=== PATIENT | male | born 1995 | race African-American/Black ===

== ENCOUNTER 2024-06-28 16:28 | Outpatient (CLI) | payer MEDICAID, SELFPAY | END 2024-06-28 16:29 | disposition home or self-care (01) | LOC: AMB 07-14 07:39 | PROVIDERS: Visit Provider Student in an Organized Health Care Education/Training Program | DX: R56.9 Unspecified convulsions (principal) | CPT/HCPCS: A0425; A0427 ==

== ENCOUNTER 2024-06-28 16:52 | Emergency (ER) | payer MEDICAID, SELFPAY ==
[2024-06-28] VITALS (60 sets, daily range): BP systolic 119–154; BP diastolic 68–101; PULSE 47–106; RESP 14–30; TEMP 36.6; O2SAT 93–100; BMI 18.5
[2024-06-28] MEDS: OLANZapine 5 MG/ML inj 10 MG IM (16:53)
[2024-06-28] MEDS: LORazepam 2 MG/ML inj IM (16:55)
[2024-06-28] MEDS: KETAMINE HCL 100 MG/ML inj 180 MG IM ×2 (17:03→20:45)
[2024-06-28 17:45] LABS: Basophils Percent Auto 0.3 % (0.0-3.0); Eosinophils Percent Auto 1.3 % (0.0-7.0); Hematocrit* 45.8 % (37.0-53.0); Hemoglobin* 14.9 gm/dL (13.5-17.5); Immature Granulocytes Pct Auto 0.4 %; Lymphocytes Percent Auto 37.5 % (20-44); Mean Corpuscular HGB Conc 33 gm/dL (32-36); Mean Corpuscular Hemoglobin 31 pg (26-34); Mean Corpuscular Volume 94 fL (80-100); Monocytes Percent Auto 7.2 % (0.0-11.0); Neutrophils Percent Auto 53.3 % (42.0-72.0); Platelet Count* 240 K/uL (140-440); RDW Coefficient of Variation % 12.6 % (11.5-15.5); Red Blood Count* 4.86 m/uL (4.30-5.90); White Blood Count* 13.56 K/uL (4.50-11.00)
[2024-06-28 17:48] LABS: Troponin, Point-of-Care* 0.02 ng/ml (0.01-0.04)
--- NOTE | 2024-06-28 18:02 | CRLHL7_ITS ---
For Patients: As a result of the Century Cures Act, medical imaging exams and procedure reports are released immediately into your electronic medical record. You may view this report before your referring provider. If you have questions, please contact your health care provider. INDICATION: Altered mental status, seizures. TECHNIQUE: CT head without contrast. COMPARISON: None. FINDINGS: CSF spaces: Within normal limits for age. Brain parenchyma: Hemorrhagic contusion in the left temporal pole measuring approximately 1 cm. Small volume subarachnoid hemorrhage in the left temporal region. Mild thickening of the tentorial leaflets measuring approximately 3 mm, representing subdural hemorrhages. Additional small subdural hemorrhage along the posterior falx. Trace pneumocephalus along the right temporal calvarium. Associated nondisplaced fracture of the right parietal and temporal bones with fracture plane extending to the right zygomatic process. Langston-white matter differentiation is maintained. No midline shift. Skull base and calvarium: Paranasal sinuses are clear. Small right mastoid effusion. The visualized orbits are grossly unremarkable. Right parietal and temporal bone fracture as above. IMPRESSION: 1. Left temporal pole hemorrhagic contusion, left temporal region subarachnoid hemorrhage, and bilateral tentorial and posterior falx subdural hemorrhages. 2. Right parietal and temporal bone fractures as above 3. Small right mastoid effusion. No definite fractures identified, however evaluation is limited by thickness of the provided images. Consider further evaluation with CT temporal bone. 4. Findings were discussed with Dr. Camarena by Dr. Jimenez on 06/28/2024 at 9:09 p.m. Please note that all CT scans at this facility use dose modulation, iterative reconstruction, and/or weight-based dosing when appropriate to reduce radiation dose to as low as reasonably achievable. Dictated by Jose Luis Jimenez MD @ 06/28/2024 9:21:04 PM (Electronically Signed)
[2024-06-28 18:06] LABS: Slide Review Reflex No
[2024-06-28 18:29] LABS: Acetaminophen* < 10.0 ug/mL (10.0-30.0); Salicylate* < 1.0 mg/dL (1.0-10)
[2024-06-28 18:30] LABS: Ethanol* < 0.01 % (0.01-0.03)
--- NOTE | 2024-06-28 18:45 | ED.NURSE ---
MD is aware HR down to low as 39. Addition 12 lead complete. Pt is assymtomatic and appears to be sleeping. HR has been around 50-60 when resting and up to 110s when awake and non re directable.
--- OUTSIDE RECORDS SUMMARY | 2024-06-28 18:45 | XMS_ITS ---
Author Organization [facility] Address [address] [place] [address] Care Team Providers Care Occupational Health Rn Name Role Phone Unavailable Unavailable Unavailable Surgery Details Not on file Complications Check Surgery Details section. Procedure Estimated Blood Loss Check Surgery Details section. Procedure Findings Check Surgery Details section. Procedure Specimens Taken Check Surgery Details section.
--- OUTSIDE RECORDS SUMMARY | 2024-06-28 18:45 | XMS_ITS | Clinical Summary ---
Author Organization [facility] Address [address] [place] [address] Care Team Providers Care Sheet Metal Worker Name Role Phone None Reported, Pcp Primary Care Provider Unavail able Source Comments Patient records contain information from all sites at [facility]. For routine questions regarding patient records, call [phone] during business hours, M-F 8:00 AM - 5:00 PM Central Time. Record requests for emergency care only can be directed to [phone] at any time.[facility] Allergies No known active allergies Medications acetaminophen 325 mg capsule Take 2 tablets by mouth as needed. 4 Active ammonium lactate (AMLACTIN) 12 % lotion Apply 1 application topically 2 (two) times a day. 6 Active naproxen (NAPROSYN) 500 mg tablet Take 500 mg by mouth. 8 Active Active Problems Problem Noted Date Diagnosed Date Attention Deficit With Hyperactivity Disorder Immunizations Name Administration Dates Next Due 4vHPV (discontinued) 09/06/2015,01/29/2013 DTP / Hib 01/26/1997,1996,1996 DTaP (Infanrix, [employer]) 01/11/2008,09/09/2001 H1N1 Nasal 06/22/2009 HepA Pediatric/Adolescent 07/25/2008,01/11/2008 HepB Pediatric/Adolescent 06/14/1997,1996, 1996 IPV 09/09/2001 Influenza Split 07/29/2006,05/18/2003 MCV4 (Menactra)(Discontinued) 01/29/2013,07/21/2 008 MCV4, Unspecified 01/11/2008 MMR 10/30/2001,09/09/2001 Polio, Unspecified 01/26/1997,1996, 997 Tdap 01/11/2008 BERTA 01/11/2008,07/26/1997 influenza trivalent LAIV (Na igor) (2 years through 49 years) 05/11/2012,05/16/2008,05/06/2007 influenza trivalent vaccine (6 months and older)(PF) 04/04/2009 Social History Tobacco Use Types Packs/Day Years Used Date Smoking Tobacco: Every Day Cigarettes Smokeless Tobacco: Never Tobacco Cessation:Ready to Q uit: Not Asked; Counseling Given: Not Answered Alcohol Use Standard Drinks/Week Comments Yes 0 (1 standard drink = 0.6 oz pur e alcohol) [facility] Utilities Answer Date Recorded In the past 12 months has th e electric, gas, oil, or water company threatened to shut off services in your home? Patient declined 07/14/2023 Social Connection and Isolation Panel [NHANES] A nswer Date Recorded Frequency of Communication with Friends and Fami ly Not on file 11/08/2019 Frequency of Social Gatherings with Friends and Family Not on file 11/08/2019 Attends Cheondoism Services Not on file 11/07 Do you belong to any clubs o r organizations such as buddhism groups, unions, fraternal or athletic groups, or school groups? Yes 11/08/2019 How often do you attend meet ings of the clubs or organizations you belong to? Patient declined 11/08/2019 Are you , , di vorced, , never , or living with a partner? Never 11/08/2019 AUDIT-C Answer Date Recorded Q1: How often do you have a drink containing alc ohol? 2-4 times a month 07/13/2019 Q2: How many drinks containi ng alcohol do you have on a typical day when you are drinking? 5 or 6 07/13/2019 Q3: How often do you have si x or more drinks on one occasion? Less than monthly 07/13/2019 Overall Financial Resource Strain (CARDIA) Answe r Date Recorded How hard is it for you to pa y for the very basics like food, housing, medical care, and heating? Somewhat hard 11/08/2019 PHQ-2 Answer Date Recorded PHQ-2 Score 0 07/13/2019 [facility] - Occupational Stress Questionnaire Answer Date Recorded Do you feel stress - tense, restless, nervous, or anxious, or unable to sleep at night because your mind is troubled all the time - these days? Rather much 11/08/2019 Exercise Vital Sign Answer Date Recorde d On average, how many days pe r week do you engage in moderate to strenuous exercise (like a brisk walk)? Patient declined On average, how many minutes do you engage in exercise at this level? Patient declined 07/14/2023 Hunger Vital Sign Answer Date Recorded Within the past 12 months, y ou worried that your food would run out before you got the money to buy more. Sometimes true Within the past 12 months, t he food you bought just didn't last and you didn't have money to get more. Patient declined PRAPARE - Transportation Answer Date Re corded In the past 12 months, has l ack of transportation kept you from medical appointments or from getting medications? No 06/24 In the past 12 months, has l ack of transportation kept you from meetings, work, or from getting things needed for daily living? No 07/14/2023 Nutrition Answer Date Recorded Nutrition: EVOO Fat Source Unknown 07/14 On average, how many serving s of fruits and vegetables do you eat per day (serving size is equal to 1 cup or approximately the size of a tennis ball)? 0-2 07/14/2023 Dental Answer Date Recorded Dental: Regular Dentist No 07/14/19 24 Employment Answer Date Recorded Employment status Unemployed/not in th e paid workforce but seeking employment 07/14/2023 Housing Stability Answer Date Recorded What is your living situatio n today? I do not have a steady place to live (I am temporarily staying with others, in a hotel, in a senior care, living outside on the street, on a beach, in a car, abandoned building, bus or train station, or in a park) 07/14/2023 Education Answer Date Recorded What is the highest level of school you have completed or the highest degree you have received? GED or equivalent Sex and Gender Information Value Date Recorded Sex Assigned at Male 07/14/2023 9:17 AM SOAPSTONER Legal Sex Male 4:48 PM SOAPSTONER Gender Identity Male 07/14/2023 9:17 AM SOAPSTONER Sexual Orientation Choose not to disclose 2023 9:17 AM SOAPSTONER Last Filed Vital Signs Vital Sign Reading Time Taken Comments Blood Pressure 131/70 11/09/2019 4:26 PM CDT Pulse 86 11/09/2019 4:26 PM CDT Temperature 36.9 C (98.4 F) 11/09/2019 4:26 PM CDT Respiratory Rate 12 07/13/2019 10:26 AM SOAPSTONER Oxygen Saturation 98% 11/09/2019 4:26 PM CDT Inhaled Oxygen Concentration - - Weight 68 kg (149 lb 14.6 oz) 07/13/2019 10:26 A M SOAPSTONER Height 177.8 cm (5' 10) 01/29/2013 1:23 PM CDT Body Mass Index - - Plan of Treatment Health Maintenance Due Date Last Done Comments HIV Screening 1996 Hepatitis C Screening 1996 Tobacco Cessation counseling 1996 Pneumococcal vaccine (0-49 y ears) (1 of 2 - PCV) 2015 HPV Vaccines (3 - Male 3-dos e series) 11/29/2015 09/06/2015, 01/29/2013 DTaP,Tdap,and Td Vaccines (7 - Td or Tdap) 01/10/2018 01/11/2008, 01/11/2008, 09/09/2001, Additional history exists COVID-19 Vaccine (1 - 2023-2 5 season) 2024 Influenza Vaccine (#1) 2024 2, 04/04/2009, 05/16/2008, Additional history exists Depression Screening (Annual PHQ-2) 06/23/2024 Hepatitis B Vaccines Completed 06/14/1997, 1996, 1996 IPV Vaccines Completed 09/09/2001, 11/1996, 1996, Additional history exists Insurance [facility] [id number] [place] [id number] Care Teams Sheet Metal Worker Relationship Specialty Start Date End Date None Reported, Pcp PCP - General Family Medicine 01/27/24
--- OUTSIDE RECORDS SUMMARY | 2024-06-28 18:45 | XMS_ITS | Clinical Summary ---
Author Organization [facility] Address [place], [place] [address] Care Team Providers Care Sr. Manager Corporate Communications Name Role Phone Judson Corrigan MD Primary Care Provider [phone] Allergies No known active allergies Medications naproxen (NAPROSYN) 500 mg tabletIndications:Art hralgia of right temporomandibular joint Take 1 tablet by mouth 2 times daily with meals. 20 tablet 8 Active Metaxalone (METAXALL) 800 mg tabletIndications:Art hralgia of right temporomandibular joint Take 1 tablet by mouth 3 times daily. 30 tablet 8 Active cyclobenzaprine (FLEXERIL) 10 mg tabletIndications:Art hralgia of right temporomandibular joint Take 1 tablet by mouth every 8 hours if needed for Muscle Spasm. 30 tablet 8 Active Social History Tobacco Use Types Packs/Day Years Used Date Smoking Tobacco: Never Assessed Sex and Gender Information Value Date Recorded Sex Assigned at Not on file Legal Sex Male 5:54 AM SISAL OPERATOR Gender Identity Not on file Sexual Orientation Not on file Last Filed Vital Signs Vital Sign Reading Time Taken Comments Blood Pressure 125/71 12/07/2020 7:42 AM CDT Pulse 89 12/07/2020 7:42 AM CDT Temperature 36.8 C (98.3 F) 12/07/2020 7:31 AM CDT Respiratory Rate 16 12/07/2020 7:31 AM CDT Oxygen Saturation 97% 12/07/2020 7:42 AM CDT Inhaled Oxygen Concentration - - Weight 62.6 kg (138 lb) 12/07/2020 7:30 AM CDT Height 180.3 cm (5' 11) 12/07/2020 7:30 AM CDT Body Mass Index 19.25 12/07/2020 7:30 AM CDT Plan of Treatment Health Maintenance Due Date Last Done Comments Tdap 2007 Depression screening for age 12+ 2008 HIV for age 15-65 2011 BMI (ht and wt on same day) for age 18+ 2014 Hepatitis C screening for ag e 18-79 2014 Tetanus booster 2016 COVID-19 vaccine series (2023- season) 2024 Influenza for age 9-49 02/22/2024 Pneumococcal series for age 6-49 Aged Out No longer eligible based on patient's age to complete this topic Care Teams Sr. Manager Corporate Communications Relationship Specialty Start Date End Date Judson Corrigan MD PCP - General Family Practice 11/11/17
--- OUTSIDE RECORDS SUMMARY | 2024-06-28 18:45 | XMS_ITS | Referral Summary ---
Author Organization [facility] Address [address] [place] [address] Care Team Providers Care Parachute Taper Name Role Phone None Reported, Pcp Primary Care Provider Unavail able Source Comments Patient records contain information from all sites at [facility]. For routine questions regarding patient records, call [phone] during business hours, M-F 8:00 AM - 5:00 PM Central Time. Record requests for emergency care only can be directed to [phone] at any time.[facility] Allergies No known active allergies Medications acetaminophen [...] drink = 0.6 oz pur e alcohol) [facility] Utilities Answer Date Recorded In the past [...] and Family Not on file 11/08/2019 Attends Christianity Services Not on file 11/07 Do you belong to any clubs o r organizations such as lutheran groups, unions, fraternal or athletic groups, or [...] Answer Date Recorded PHQ-2 Score 0 07/13/2019 [facility] - Occupational Stress Questionnaire Answer Date Recorded [...] with others, in a hotel, in a penitentiary, living outside on the street, on a beach, in a car, abandoned building, bus or train station, or in a park) 07/14/2023 Education Answer Date Recorded What is the highest level of school you have completed or the highest degree you have received? GED or equivalent Sex and Gender Information Value Date Recorded Sex Assigned at Male 07/14/2023 9:17 AM SKIVING MACHINE OPERATOR Legal Sex Male 4:48 PM SKIVING MACHINE OPERATOR Gender Identity Male 07/14/2023 9:17 AM SKIVING MACHINE OPERATOR Sexual Orientation Choose not to disclose 2023 9:17 AM SKIVING MACHINE OPERATOR Last Filed Vital Signs Vital Sign Reading Time Taken Comments Blood Pressure 131/70 11/09/2019 4:26 PM CDT Pulse 86 11/09/2019 4:26 PM CDT Temperature 36.9 C (98.4 F) 11/09/2019 4:26 PM CDT Respiratory Rate 12 07/13/2019 10:26 AM SKIVING MACHINE OPERATOR Oxygen Saturation 98% 11/09/2019 4:26 PM CDT Inhaled Oxygen Concentration - - Weight 68 kg (149 lb 14.6 oz) 07/13/2019 10:26 A M SKIVING MACHINE OPERATOR Height 177.8 cm (5' 10) 01/29/2013 1:23 PM CDT Body Mass Index - - Plan of Treatment Not on file Insurance [address] [place] [id number] [facility] [address] [place] [id number] Care Teams Parachute Taper Relationship Specialty Start Date End Date None Reported, Pcp PCP - General Family Medicine 01/27/24
[2024-06-28 19:01] LABS: Albumin* 4.7 g/dL (3.3-5.0); Chloride* 102 mmol/L (96-114); Sodium* 136 mmol/L (135-149)
[2024-06-28 19:03] LABS: Anion Gap 12 mEq/L (7-15); Bilirubin Total* 0.6 mg/dL (0.1-1.5); Carbon Dioxide* 22 mmol/L (20-32); Creatinine* 0.9 mg/dL (0.5-1.5); Est. Creatinine Clearance* 98.87; Estimated Glomerular Filt Rate 120 ml/min
[2024-06-28 19:04] LABS: Alanine Aminotransferase* 49 U/L (4-50); Alkaline Phosphatase* 58 U/L (40-150); Aspartate Amino Transferase* 40 U/L (12-35); Blood Urea Nitrogen* 13 mg/dL (5-24); Calcium* 8.9 mg/dL (8.4-10.6); Creatine Kinase* 485 U/L (54-186); Glucose* 186 mg/dL (60-115); Total Protein* 7.1 g/dL (6.0-8.3)
[2024-06-28 19:06] LABS: Potassium* 2.8 mmol/L (3.6-5.1)
[2024-06-28] MEDS: LACTATED RINGERS 1000 ML 1,000 ML IV (19:22)
--- NOTE | 2024-06-28 19:45 | ED.NURSE ---
attempted to get CT scan X2 unable related to pt not following dorections and moving around. MD Vargas aware of pt restlessness
--- NOTE | 2024-06-28 19:58 | ED.NURSE ---
Mom updated and at bedside briefly. aware of K 2.8, no new orders placed.
[2024-06-28] MEDS: KETAMINE HCL 100 MG/ML inj 50 MG IVP (20:17)
[2024-06-28] MEDS: OLANZapine 5 MG/ML inj 10 MG IVP (20:40)
[2024-06-28] MEDS: 0.9 % SODIUM CHLORIDE 1000 ml 1,000 ML IV (21:27)
[2024-06-28] MEDS: SUCCINYLCHOLINE 20 MG/ML INJ 140 MG IVP (21:27)
[2024-06-28] MEDS: ETOMIDATE 2 MG/ML inj 30 MG IVP (21:27)
[2024-06-28] MEDS: propofoL 1,000 MG/100 ML ML 10.37 MG IVPB (21:35)
--- NOTE | 2024-06-28 21:36 | ED_ITS ---
HPI - Altered Mental Status General Date Seen: 06/28/24 Chief Complaint: Altered Mental Status Stated Complaint: Seizure Time Seen by Provider: 06/28/24 17:27 Source: EMS Mode of arrival: EMS Limitations: altered mental status History of Present Illness HPI narrative: Patient is a 28-year-old male brought in by EMS for altered mental status. They state they were told he was vaping when next thing his mother new patient was having a seizure. They unsure if he fell or what exactly happened prior to the seizure. Vital signs were stable for her them. He was very combative and was given Versed. EMS states initially when they arrived he was very altered and minimally responsive but soon was very combative. Related Data Allergies Allergy/AdvReac Type Severity Reaction Status Date / Time No Known Drug Allergies Allergy Verified 06/28/24 23:54 Review of Systems Status of ROS: Reports: unobtainable due to mental status Exam Narrative: Exam Narrative: Const: Well-nourished, Well-developed, altered, diaphoretic Eyes: no conjunctival injection, and symmetrical lids HENT: Atraumatic external nose and ears. Moist mucous membranes. Neck: Symmetric, trachea midline, No thyromegaly. CVS: Tachycardic, No murmurs or gallops. Peripheral pulses 2+ and equal in all extremities RESP: Unlabored respiratory effort. Clear to auscultation bilaterally. GI: Nontender/Nondistended, No rebound or guarding. MSK:Extremities w/o deformity, Normal Active ROM Skin: Warm, Dry. No rashes or lesions. Neuro: Normal Muscle tone Psych: Awake, but very combative and confused Const: Vital Signs, click to edit/add: Vital Signs - 24 hr 06/28/24 16:53 06/28/24 17:00 06/28/24 17:30 Temperature Pulse Rate Pulse Rate [Pulse Oximeter] Respiratory Rate 30 H 14 20 Blood Pressure Blood Pressure [Ri ght Upper Arm] Pulse Oximetry [facility] 17:38 06/28/24 17:40 06/28/24 17:42 Temperature Pulse Rate 69 75 Pulse Rate [Pulse Oximeter] Respiratory Rate 24 Blood Pressure 121/74 119/70 Blood Pressure [Ri ght Upper Arm] Pulse Oximetry 97 97 [facility]xygen [facility] 06/28/24 17:43 06/28/24 17:44 06/28/24 17:45 Temperature 97.8 F Pulse Rate 66 69 Pulse Rate [Pulse Oximeter] 69 Respiratory Rate 22 Blood Pressure Blood Pressure [Ri ght Upper Arm] 121/74 Pulse Oximetry 97 97 97 Oxygen Delivery Me thod Room Air 06/28/24 17:47 06/28/24 17:48 06/28/24 17:50 Temperature Pulse Rate 65 63 Pulse Rate [Pulse Oximeter] Respiratory Rate Blood Pressure 122/76 Blood Pressure [Ri ght Upper Arm] Pulse Oximetry 97 97 98 Oxygen Delivery Me thod 06/28/24 17:52 06/28/24 17:53 06/28/24 17:57 Temperature Pulse Rate 64 62 Pulse Rate [Pulse Oximeter] Respiratory Rate 20 Blood Pressure 120/76 122/76 Blood Pressure [Ri ght Upper Arm] Pulse Oximetry 97 97 Oxygen Delivery Me thod 06/28/24 17:58 06/28/24 18:00 06/28/24 18:02 Temperature Pulse Rate 64 Pulse Rate [Pulse Oximeter] Respiratory Rate Blood Pressure Blood Pressure [Ri ght Upper Arm] Pulse Oximetry 97 97 97 Oxygen Delivery Me thod 06/28/24 18:07 06/28/24 18:23 06/28/24 18:30 Temperature Pulse Rate 58 L 52 L 48 L Pulse Rate [Pulse Oximeter] Respiratory Rate Blood Pressure 121/72 Blood Pressure [Ri ght Upper Arm] Pulse Oximetry 96 95 96 Oxygen Delivery Me thod 06/28/24 18:32 06/28/24 18:37 06/28/24 18:38 Temperature Pulse Rate 50 L 52 L Pulse Rate [Pulse Oximeter] Respiratory Rate 22 Blood Pressure 134/71 132/73 Blood Pressure [Ri ght Upper Arm] Pulse Oximetry 98 97 Oxygen Delivery Me thod 06/28/24 18:42 06/28/24 18:43 06/28/24 18:45 Temperature Pulse Rate 52 L 52 L 53 L Pulse Rate [Pulse Oximeter] Respiratory Rate Blood Pressure 144/79 H Blood Pressure [Ri ght Upper Arm] Pulse Oximetry 95 96 95 Oxygen Delivery Me thod 06/28/24 18:47 06/28/24 18:52 06/28/24 19:00 Temperature Pulse Rate 52 L 48 L 47 L Pulse Rate [Pulse Oximeter] Respiratory Rate Blood Pressure 135/68 124/72 Blood Pressure [Ri ght Upper Arm] Pulse Oximetry 95 96 93 Oxygen Delivery Me thod 06/28/24 19:05 06/28/24 19:05 06/28/24 19:19 Temperature Pulse Rate 53 L 53 L 47 L Pulse Rate [Pulse Oximeter] Respiratory Rate Blood Pressure Blood Pressure [Ri ght Upper Arm] Pulse Oximetry 96 96 95 Oxygen Delivery Me thod 06/28/24 19:30 06/28/24 19:35 06/28/24 19:36 Temperature Pulse Rate 52 L 51 L 52 L Pulse Rate [Pulse Oximeter] Respiratory Rate Blood Pressure Blood Pressure [Ri ght Upper Arm] Pulse Oximetry 99 98 98 Oxygen Delivery Me thod 06/28/24 19:45 06/28/24 20:00 06/28/24 20:11 Temperature Pulse Rate 50 L 55 L Pulse Rate [Pulse Oximeter] Respiratory Rate Blood Pressure 129/71 Blood Pressure [Ri ght Upper Arm] Pulse Oximetry 96 99 Oxygen Delivery Me thod 06/28/24 20:15 06/28/24 20:32 06/28/24 20:45 Temperature Pulse Rate 64 92 106 H Pulse Rate [Pulse Oximeter] Respiratory Rate Blood Pressure Blood Pressure [Ri ght Upper Arm] Pulse Oximetry 99 99 96 Oxygen Delivery Me thod 06/28/24 21:01 06/28/24 21:03 Temperature Pulse Rate 78 73 Pulse Rate [Pulse Oximeter] Respiratory Rate Blood Pressure 123/78 Blood Pressure [Ri ght Upper Arm] Pulse Oximetry 97 96 Oxygen Delivery Me thod Course Vital Signs Vital signs: Initial Vital Signs Respiratory Rate 30 H 06/28/24 16:53 Respiratory Effort Normal, Spontaneous 06/28/24 16:53 Respiratory Depth Normal 06/28/24 16:53 Respiratory Pattern Normal 06/28/24 16:53 Vital Signs Respiratory Rate 30 H 06/28/24 16:53 Temperature 97.8 F 06/28/24 17:44 Pulse Rate 80 06/28/24 22:02 Respiratory Rate 14 06/28/24 22:02 Blood Pressure 124/78 06/28/24 22:02 Pulse Oximetry 100 06/28/24 22:02 Oxygen Delivery Method Intubated 06/28/24 21:28 Medications Administered Medications: Discontinued Medications Generic Name Dose Route Start Last Admin Trade Name Freq PRN Reason Stop Dose Admin Dexamethasone 10 mg 06/28/24 23:21 06/28/24 21:38 Dexamethasone 10 Mg/Ml Inj IVP 06/28/24 23:22 10 mg ONCE ONE Administration Etomidate 30 mg 06/28/24 23:21 06/28/24 21:27 Etomidate 2 Mg/Ml Inj IVP 06/28/24 23:22 30 mg ONCE ONE Administration Fentanyl 100 mcg 06/28/24 23:21 06/28/24 21:37 Fentanyl 100 Mcg/2 Ml Inj IVP 06/28/24 23:22 100 mcg ONCE ONE Administration Lactated Ringer's 1,000 mls @ 1,000 mls/hr 06/28/24 19:05 06/28/24 22:18 Lactated Ringers 1000 Ml IV 06/28/24 20:04 Infused .Q1H ONE Infusion Sodium Chloride 1,000 mls @ 1,000 mls/hr 06/28/24 23:23 06/28/24 21:27 0.9 % Sodium Chloride 1000 Ml IV 06/29/24 00:22 1,000 mls/hr .Q1H HALEY Administration Propofol 1,000 mg in 100 mls @ 10.369 mls/hr 06/28/24 23:24 06/28/24 21:35 Propofol IVPB 30 mcg/kg/min CONT PRN 10.37 mls/hr Administration 30 MCG/KG/MIN Levetiracetam 1,000 mg/ Sodium 110 mls @ 440 mls/hr 06/28/24 23:21 06/28/24 21:38 Chloride IVPB 06/28/24 23:22 440 mls/hr ONCE ONE Administration Ketamine HCl 180 mg 06/28/24 17:27 06/28/24 17:03 Ketamine Hcl 100 Mg/Ml Inj IM 06/28/24 17:28 180 mg ONCE ONE Administration Ketamine HCl 50 mg 06/28/24 19:58 06/28/24 20:17 Ketamine Hcl 100 Mg/Ml Inj IVP 06/28/24 19:59 50 mg ONCE ONE Administration Ketamine HCl 50 mg 06/28/24 20:25 06/28/24 22:19 Ketamine Hcl 100 Mg/Ml Inj IVP 06/28/24 20:26 Not Given ONCE ONE Ketamine HCl 180 mg 06/28/24 23:21 06/28/24 20:45 Ketamine Hcl 100 Mg/Ml Inj IM 06/28/24 23:22 180 mg ONCE ONE Administration Lorazepam 2 mg 06/28/24 17:27 06/28/24 16:55 Lorazepam 2 Mg/Ml Inj IM 06/28/24 17:28 2 mg ONCE ONE Administration Midazolam HCl 5 mg 06/28/24 23:21 06/28/24 21:49 Midazolam Hcl 1 Mg/Ml Inj IVP 06/28/24 23:22 5 mg ONCE ONE Administration Olanzapine 5 mg 06/28/24 16:59 06/28/24 19:22 Olanzapine 5 Mg/Ml Inj IVP 06/28/24 17:00 Not Given ONCE ONE Olanzapine 10 mg 06/28/24 17:57 06/28/24 16:53 Olanzapine 5 Mg/Ml Inj IM 06/28/24 17:58 10 mg ONCE ONE Administration Olanzapine 10 mg 06/28/24 23:21 06/28/24 20:40 Olanzapine 5 Mg/Ml Inj IVP 06/28/24 23:22 10 mg ONCE ONE Administration Propofol 50 mg 06/28/24 23:51 06/28/24 21:37 Propofol 10 Mg/Ml Inj IVP 06/28/24 23:52 50 mg ONCE ONE Administration Succinylcholine Chloride 140 mg 06/28/24 23:21 06/28/24 21:27 Succinylcholine 20 Mg/Ml Inj IVP 06/28/24 23:22 140 mg ONCE ONE Administration MDM - Altered Mental Status MDM Narrative Medical decision making narrative: Patient is a 28-year-old male presenting for altered mental status. He is very combative any arrived at Dr. Teran was called. Patient was given another 2 of Ativan along with eventually 10 of Zyprexa and 180 IM ketamine. After the ket amine he did calm down. It is difficult to do a thorough exam prior to this but I was able to see initially his pupils were dilated and nonreactive but after the ketamine and the patient calmed down they were now more pinpoint. Before he was fully sedated he was asking for someone to help him. This was the 1st time he form coherent words and not just screaming according to EMS. I do not feel a ny traumatic injuries when I palpate his skull. Initial cause of symptoms seems to be a drug overdose considering he was vaping do not know what was in the vape. Yeah ETOH, cm in a fan level, salicylate level, CK, CBC and CMP all ordered. We will attempt to do a CT scan of his head. We tried right away do the CT scan but he would not lay still. While he was sedated his heart rate will occasionally drop down into the 40s but typically stayed in the 50s to 60s. We did do a repeat EKG at this time showing a heart rate of 48 but he was otherwise stable. Blood pressure was normal along with his O2 sats. Did not appear to be in shock. Also considered meningitis. Potassium was low but he cannot take oral potassium at this time and I am hesitant to went in through the IV as he is a high risk of infiltration and will likely agitated him more. His mom is now here after patient has been sedated for about 30 or 45 minutes and states the patient was walking with her when he suddenly had seizure-like activity where his right arm became flexed and very tensed and he was unresponsive while foaming at the mouth. The Patient was sedated and eventually became more arousable. When he would wake up he would ask for his mom and make full sentences. He continued to be very confused though. He gradually became more and more combative again over the next few hours but continued to improve his mentation and now would answer questions but is still very confused. Continued to be combative throughout this though. We ended up needing to sedate him again with ketamine and Zyprexa. We were eventually able to sedate him enough to get him to CT scan. I was hesitant to intubate him right away due to initially believing this was from a drug overdose and believing he would slowly improved. And considering he did improve I did continue to consider it but held off on intubation due to the clinical improvement in mental status. CT scan was finally performed showing temporal region subarachnoid hemorrhage, bilateral tentorial and posterior falx subdural hemorrhages along with a right parietal and temporal bone fractures. We immediately got the patient ready for intubation for transfer. He would not be safe for transfer without intubation due to his combativeness. We called [facility] for transfer to his ED and he has accepted for transfer. Will fly by air. Was given Decadron for potential swelling along with Keppra for seizure prophylaxis. Lab Data Labs: Lab Results 06/28/24 06/28/24 06/28/24 Range/Units 17:28 17:30 18:35 WBC 13.56 H (4.50-11.00) K/uL RBC 4.86 (4.30-5.90) m/uL Hgb 14.9 (13.5-17.5) gm/dL Hct 45.8 (37.0-53.0) % MCV 94 (80-100) fL MCH 31 (26-34) pg MCHC 33 (32-36) gm/dL RDW Coeff of Miriam 12.6 (11.5-15.5) % Plt Count 240 (140-440) K/uL Neut % (Auto) 53.3 (42.0-72.0) % Lymph % (Auto) 37.5 (20-44) % Clayton % (Auto) 7.2 (0.0-11.0) % Eos % (Auto) 1.3 (0.0-7.0) % Baso % (Auto) 0.3 (0.0-3.0) % Neut # (Auto) 7.20 H (1.7-7.0) K/uL Lymph # (Auto) 5.10 H (0.90-2.90) K/uL Clayton # (Auto) 1.00 H (0.00-0.90) K/UL Eos # (Auto) 0.20 (0.00-0.50) K/uL Baso # (Auto) 0.00 (0.00-0.30) K/uL Abs Immat Gran (auto) 0.10 (0.00-0.30) K/uL Imm/Tot Granulo (auto) 0.4 % Sodium (135-149) mmol/L Potassium (3.6-5.1) mmol/L Chloride (96-114) mmol/L Carbon Dioxide (20-32) mmol/L Anion Gap (7-15) mEq/L BUN (5-24) mg/dL Creatinine (0.5-1.5) mg/dL Estimated Creat Clear Estimated GFR ml/min Glucose (60-115) mg/dL Calcium (8.4-10.6) mg/dL Total Bilirubin (0.1-1.5) mg/dL AST (12-35) U/L ALT (4-50) U/L Alkaline Phosphatase (40-150) U/L Total Creatine Kinase (54-186) U/L Total Protein (6.0-8.3) g/dL Albumin (3.3-5.0) g/dL Salicylates (1.0-10) mg/dL Acetaminophen (10.0-30.0) ug/mL Ur Drug Screen Comment See Note Ethyl Alcohol (0.01-0.03) % Lab Acknowledgement Test Added POC Troponin I 0.02 (0.01-0.04) ng/ml 06/28/24 06/28/24 Range/Units 18:37 18:39 WBC (4.50-11.00) K/uL RBC (4.30-5.90) m/uL Hgb (13.5-17.5) gm/dL Hct (37.0-53.0) % MCV (80-100) fL MCH (26-34) pg MCHC (32-36) gm/dL RDW Coeff of Miriam (11.5-15.5) % Plt Count (140-440) K/uL Neut % (Auto) (42.0-72.0) % Lymph % (Auto) (20-44) % Clayton % (Auto) (0.0-11.0) % Eos % (Auto) (0.0-7.0) % Baso % (Auto) (0.0-3.0) % Neut # (Auto) (1.7-7.0) K/uL Lymph # (Auto) (0.90-2.90) K/uL Clayton # (Auto) (0.00-0.90) K/UL Eos # (Auto) (0.00-0.50) K/uL Baso # (Auto) (0.00-0.30) K/uL Abs Immat Gran (auto) (0.00-0.30) K/uL Imm/Tot Granulo (auto) % Sodium 136 (135-149) mmol/L Potassium 2.8 L* (3.6-5.1) mmol/L Chloride 102 (96-114) mmol/L Carbon Dioxide 22 (20-32) mmol/L Anion Gap 12 (7-15) mEq/L BUN 13 (5-24) mg/dL Creatinine 0.9 (0.5-1.5) mg/dL Estimated Creat Clear 98.87 Estimated GFR 120 ml/min Glucose 186 H (60-115) mg/dL Calcium 8.9 (8.4-10.6) mg/dL Total Bilirubin 0.6 (0.1-1.5) mg/dL AST 40 H (12-35) U/L ALT 49 (4-50) U/L Alkaline Phosphatase 58 (40-150) U/L Total Creatine Kinase 485 H Cancelled (54-186) U/L Total Protein 7.1 (6.0-8.3) g/dL Albumin 4.7 (3.3-5.0) g/dL Salicylates < 1.0 L (1.0-10) mg/dL Acetaminophen < 10.0 L (10.0-30.0) ug/mL Ur Drug Screen Comment Ethyl Alcohol < 0.01 L (0.01-0.03) % Lab Acknowledgement POC Troponin I (0.01-0.04) ng/ml Imaging Data CT scan - head: Attestation: I have reviewed the pertinent imaging results. Radiologist's impression: 1. Left temporal pole hemorrhagic contusion, left temporal region subarachnoid hemorrhage, and bilateral tentorial and posterior falx subdural hemorrhages. 2. Right parietal and temporal bone fractures as above 3. Small right mastoid effusion. No definite fractures identified, however evaluation is limited by thickness of the provided images. Consider further evaluation with CT temporal bone. 4. Findings were discussed with Dr. Camarena by Dr. Jimenez on 06/28/2024 at 9:09 p.m. Please note that all CT scans at this facility use dose modulation, iterative reconstruction, and/or weight-based dosing when appropriate to reduce radiation dose to as low as reasonably achievable. Dictated by Jose Luis Jimenez MD @ 06/28/2024 9:21:04 PM ECG Data Attestation: I personally reviewed and interpreted this ECG as follows: Prior ECG tracings: not available for review Interpretation: Normal sinus rhythm with rate 95 beats per minute, normal intervals, normal axis, no ST or T-wave abnormalities. Critical Care Time Critical Care Time Critical Care Time: Yes Attestation: The patient required my highest level preparedness to intervene emergently and I personally spent this critical care time directly and personally managing the patient. This critical care time included: Obtaining a history; Examining the patient; Pulse oximetry; Ordering and reviewing of studies; Arranging urgent treatment with development of a management plan; Evaluation of patients response to treatment; Frequent reassessment discussions with other providers. This critical care time was performed to assess and manage the high probability of imminent life-threatening deterioration that could result in multiorgan f ailure. It was exclusive of separate billable procedures and treating other patients and teaching time. Total Critical Care Time in Minutes: 105 Discharge Plan Discharge Clinical Impression: Subarachnoid hemorrhage, Subdural hemorrhage, Seizures Skull fracture Qualifiers: Encounter type: sequela Skull bone/location: unspecified skull bone Fracture type: closed Qualified Code(s): S02.91XS - Unspecified fracture of skull, sequela Patient Disposition: Xfer Other Condition: Critical Stand Alone Forms: [facility] Info Instructions
[2024-06-28] MEDS: PROPOFOL 10 MG/ML INJ 50 MG IVP (21:37)
[2024-06-28] MEDS: fentaNYL 100 MCG/2 ML inj IVP (21:37)
[2024-06-28] MEDS: dexAMETHasone 10 MG/ML inj IVP (21:38)
[2024-06-28] MEDS: MIDAZOLAM HCL 1 MG/ML inj 5 MG IVP (21:49)
--- NOTE | 2024-06-28 21:49 | CRLHL7_ITS ---
For Patients: As a result of the Century Cures Act, medical imaging exams and procedure reports are released immediately into your electronic medical record. You may view this report before your referring provider. If you have questions, please contact your health care provider. INDICATION: Confirm breathing tube placement TECHNIQUE: Chest radiograph 1 view COMPARISON: None FINDINGS: Mediastinum: The endotracheal tube tip is positioned 4.7 cm from the gabino. The heart silhouette is normal in size and morphology. NG tube is present with the side port at the GE junction. Lung: Both lungs are unremarkable in appearance. No sign of pleural effusion seen. No pneumothorax is identified. Bone and Soft tissue: Unremarkable for age. IMPRESSION: 1. No acute cardiopulmonary disease is seen. Dictated by Donald Mcdaniels MD @ 06/28/2024 10:17:47 PM Dictated by: Donald Mcdaniels MD @ 06/28/2024 22:17:57 (Electronically Signed)
--- NOTE | 2024-06-28 22:11 | ED.NURSE ---
pt c/o of headache at 1999 at bedside with mom present. MD is aware. Attempted to get CT scan however, pt is to resltess in scanner and attempting to sit up. MD aware.
--- NOTE | 2024-06-28 22:50 | ED.NURSE ---
Flight crew left with pt. Pt vitally stable at time. x2 20g Ivs patents. pt size pupils are 2mm. Intubated and sedated on propofol. Watters and OG placed.
--- NOTE | 2024-06-28 22:51 | ED.NURSE ---
1910 straight cath pt, with no urine ruturn for UA sample. MD aware of no urine return. Also, scanned pt after event for bladder scan. When pt arrived to ER his pants were not soild.
--- NOTE | 2024-06-28 22:53 | ED.NURSE ---
Nurse to nurse report given to Anayeli at [facility].
--- NOTE | 2024-06-28 22:58 | ED.NURSE ---
2010 Attempted to give 50mcg of Ketamine to get head CT. Pt was still awake, screaming and attempting to crawl out of bed. Pt is moving all extremities. MD at bedside. Unable to get CT read x3 attempt.
--- NOTE | 2024-06-28 22:59 | ED.NURSE ---
2024 JANELL called Pt was screaming, lashing around, attempting to kick staff. Again tried to bite staff during this event. Pt not redirectable at event. 2031 4 point restraints placed again on pt. x2 medicaitons given, post agitated (see AUG). Pt eventually was calm and not longer fighting staff. CT scan obtainted.
--- NOTE | 2024-06-28 23:55 | ED.NURSE ---
Second JANELL called, pt was screaming, attempting to kick staff and not redirectable. Restraints placed 2031 4 pt. CMS intact. Restrints removed 2131 related to escalation of cares ang preparing to intubated pt.
--- NOTE | 2024-06-29 00:03 | ED.NURSE ---
MD ordered restraints x2 in error.
--- NOTE | 2024-06-29 00:34 | ED.NURSE ---
Decision to intubate and sedate pt related to head bleed saw on CT. See scanned documentation for further detail. [facility] [place] accepted pt. Report called to Anayeli. Mom and sister at bedside.Prior to intubation pt pulled out left IV, new right 20g Iv placed.
--- NOTE | 2024-06-29 00:41 | ED.NURSE ---
Please see all [place] documentation and critical/ code blue documentation for pt. Pt was in 4 pt restraints during 2 separate events following JANELL calls/ aggressive behaviors. CMS intact. Dr. Vargas at bedside multiple times during events
== END 2024-06-28 22:10 | disposition other institution (70) ==
PROVIDERS: Emergency Provider Student in an Organized Health Care Education/Training Program
DX: S02.0XXA Fracture of vault of skull, initial encounter for closed fracture (principal); S06.5XAA Traumatic subdural hemorrhage with loss of consciousness status unknown, initial encounter; S06.6XAA Traumatic subarachnoid hemorrhage with loss of consciousness status unknown, initial encounter
CPT/HCPCS: 31500; 36415; 70450; 71045; 80053; 80143; 80179; 80306; 82077; 82550; 84484; 85025; 93005; 94761; 99285; 99291; 99292; J0330; J1100; J1953; J2060; J2250; J2704; J3010; J3490; J7030; J7120